=== PATIENT | female | born 1950 | race Caucasian/White ===

== ENCOUNTER 2016-04-11 17:35 | Emergency (ER) | payer MEDICARE, OTHER ==
[~2016-04-11] VITALS: Ht 167.6 cm; Wt 64.0 kg
[~2016-04-11 17:35] MED LIST: CELE200 PO; VASO10TA8 PO
[2016-04-11 18:01] VITALS: BP 122/66; PULSE 86; RESP 16; TEMP 99.1; O2SAT 100
[2016-04-11] MEDS ORDERED: LISI20TA3 PO (19:49)
--- NOTE | 2016-04-11 19:55 | PD ---
HPI Chief Complaint: GI Complaint Time Seen by Provider: 19:52 Travel History International Travel<30 days: No Contact w/Intl Traveler<30days: No Traveled to known affect area: No History of Present Illness HPI The patient is a 65-year-old female that complains of periumbilical pain along with nausea, vomiting and diarrhea starting about noon today. She denies any blood in the stool. She denies any fever. She is on recent antibiotics, several weeks ago she completed a course of Cipro for a urinary tract infection. She does have a history of acid reflux but no other major medical problems. She went to [facility] March 25, she mostly drank water collected of the roof. PFS Past Medical History Arthritis: Yes Blood Disorders: No Cancer: No Cardiovascular Problems: Yes (htn on meds) Diminished Hearing: No Endocrine: No Genitourinary: No Hypertension: Yes Immune Disorder: No Neurologic: No Psychiatric: No Reproductive: No Respiratory: No Immunizations Current: Yes Tetanus Vaccination: Unknown Influenza Vaccination: No ?: Not Menopausal: Yes Past Surgical History Gynecologic Surgery: Yes (x 1 vaginal delivery) Oral Surgery: Yes (tonsillectomy) Social History Alcohol Use: Yes (1 glass of wine per day) Tobacco Use: No Substance Use: No Allergies-Medications (Allergen,Severity, Reaction): Coded Allergies: No Known Allergies (Unverified , 04/11/16) Reported Meds & Prescriptions Reported Meds & Active Scripts Active Reported Lisinopril-Hctz 20-25 Mg Tab 1 Tab PO DAILY Review of Systems Except as stated in HPI: all other systems reviewed are Neg Physical Exam Narrative GENERAL: The patient appears at least moderately dehydrated with good color and alert and oriented 3 and slight apparent distress with her nausea. Her vital signs are normal. SKIN: Warm and dry. HEAD: Atraumatic. Normocephalic. EYES: Pupils equal and round. No scleral icterus. No injection or drainage. ENT: No nasal bleeding or discharge. Mucous membranes pink and moist. NECK: Trachea midline. No JVD. CARDIOVASCULAR: Regular rate and rhythm. No murmur appreciated. RESPIRATORY: No accessory muscle use. Clear to auscultation. Breath sounds equal bilaterally. GASTROINTESTINAL: Abdomen soft, with minimal tenderness to direct palpation in the midline epigastrium, nondistended. Hepatic and splenic margins not palpable. No guarding or rebound is present. MUSCULOSKELETAL: No obvious deformities. No clubbing. No cyanosis. No edema. NEUROLOGICAL: Awake and alert. No obvious cranial nerve deficits. Motor grossly within normal limits. Normal speech. PSYCHIATRIC: Appropriate mood and affect; insight and judgment normal. Data Data Last Documented VS Vital Signs Date Time Temp Pulse Resp B/P Pulse Ox O2 Delivery O2 Flow Rate FiO2 04/11/16 19:50 18 04/11/16 18:01 99.1 86 122/66 100 Orders Sodium Chlor 0.9% 1000 Ml Inj (Ns 1000 M (04/11/16 20:00) Ondansetron Inj (Zofran Inj) (04/11/16 20:00) Complete Blood Count With Diff (04/11/16 19:56) Basic Metabolic Panel (Bmp) (04/11/16 19:56) Lipase (04/11/16 19:56) Labs Laboratory Tests Test 04/11/16 20:15 White Blood Count 12.9 TH/MM3 Red Blood Count 4.99 MIL/MM3 Hemoglobin 14.0 GM/DL Hematocrit 41.5 % Mean Corpuscular Volume 83.1 FL Mean Corpuscular Hemoglobin 28.0 PG Mean Corpuscular Hemoglobin 33.8 % Concent Red Cell Distribution Width 12.6 % Platelet Count 308 TH/MM3 Mean Platelet Volume 9.6 FL Neutrophils (%) (Auto) 92.3 % Lymphocytes (%) (Auto) 3.6 % Monocytes (%) (Auto) 2.2 % Eosinophils (%) (Auto) 0.1 % Basophils (%) (Auto) 1.8 % Neutrophils # (Auto) 11.9 TH/MM3 Lymphocytes # (Auto) 0.5 TH/MM3 Monocytes # (Auto) 0.3 TH/MM3 Eosinophils # (Auto) 0.0 TH/MM3 Basophils # (Auto) 0.2 TH/MM3 CBC Comment DIFF FINAL Differential Comment Sodium Level 141 MEQ/L Potassium Level 4.1 MEQ/L Chloride Level 103 MEQ/L Carbon Dioxide Level 25.6 MEQ/L Anion Gap 12 MEQ/L Blood Urea Nitrogen 26 MG/DL Creatinine 1.10 MG/DL Estimat Glomerular Filtration 50 ML/MIN Rate Random Glucose 134 MG/DL Calcium Level 9.1 MG/DL Lipase 171 U/L MDM Medical Decision Making Medical Screen Exam Complete: Yes Emergency Medical Condition: Yes Medical Record Reviewed: Yes Interpretation(s) The CBC shows a white count of 12,900 with 92% neutrophils but is otherwise unremarkable. The basic metabolic profile shows a BUN of 26, creatinine 1.1, GFR 50 and glucose of 134 but is otherwise normal. The lipase is normal. Differential Diagnosis Viral gastroenteritis, pancreatitis, gastritis, dehydration, electrolyte disorder, anemia, renal insufficiency, colitis Narrative Course The patient likely has a viral gastroenteritis. With her elevated BUN and clinical findings as well as a slight leukocytosis the patient appears to have been moderately dehydrated. It is now 8:53 PM and the patient is successfully drinking Gatorade. She is not nauseated at this time. Diagnosis Primary Impression: Viral gastroenteritis Additional Impression: Moderate dehydration Additional Instructions: Take the Zofran regularly, 1 tablet 3 times daily to prevent nausea for the first day or 2. Stick with clear liquids in the first 24 hours. Gradually reintroduce your diet and adding fatty foods in at the last. No milk or dairy products in the first 24 hours. Follow-up with your primary care physician next week. Med/Other Pt SpecificInfo: Prescription(s) given Scripts Ondansetron (Zofran)8 Mg Tab8 Mg PO TID #21 TAB Ref 0 Prov:Daquan Durand MD 04/11/16 Disposition: 01 DISCHARGE HOME Condition: Stable Daquan Durand MD Apr 11, 2016 19:55
[2016-04-11] MEDS ORDERED: ONDANSETRON HCL 4 MG/2 ML VIAL IV ONE (20:00)
[2016-04-11] MEDS: SODIUM CHLOR 0.9% 1000 ML INJ 1,000 ML IV SCH ×2 (20:21→20:53)
[2016-04-11 20:29] LABS: AUTOMATED NEUTROPHIL # 11.9 TH/MM3 (1.8-7.7); BASOPHIL # 0.2 TH/MM3 (0-0.2); BASOPHIL % 1.8 % (0.0-2.0); EOSINOPHIL % 0.1 % (0.0-4.0); HEMATOCRIT 41.5 % (35.0-46.0); LYMPH % 3.6 % (9.0-44.0); LYMPHOCYTE # 0.5 TH/MM3 (1.0-4.8); MEAN CELL VOLUME 83.1 FL (80.0-100.0); MEAN CORPUSCULAR HGB CONC 33.8 % (32.0-36.0); MONO % 2.2 % (0.0-8.0); NEUT % 92.3 % (16.0-70.0); PLATELET COUNT 308 TH/MM3 (150-450); RED BLOOD COUNT 4.99 MIL/MM3 (4.00-5.30); RED CELL DISTRIBUTION WIDTH 12.6 % (11.6-17.2); WHITE BLOOD COUNT 12.9 TH/MM3 (4.0-11.0)
[2016-04-11 20:30] LABS: POTASSIUM 4.1 MEQ/L (3.5-5.1)
[2016-04-11 20:33] LABS: BICARBONATE 25.6 MEQ/L (21.0-32.0)
[2016-04-11 20:35] LABS: HEMO FLAGS DIFF FINAL
[2016-04-11] MEDS ORDERED: ZOFR8TAB PO (20:54)
[2016-04-11 20:55] VITALS: BP 146/65; PULSE 87; RESP 18; O2SAT 98
[2016-04-11 21:53] VITALS: BP 119/59
== END 2016-04-11 21:56 | disposition home or self-care (01) ==
LOC: PHED 17:35
DX: A08.4 Viral intestinal infection, unspecified (principal); E86.0 Dehydration; I10 Essential (primary) hypertension
CPT/HCPCS: 80048; 83690; 85025; 96361; 96374; 99284; J2405; J7030